=== PATIENT | male | born 1950 | race Hispanic/Latino ===

== ENCOUNTER 2022-08-31 15:28 | Emergency (ER) | payer MEDICARE, MEDICAID, SELFPAY ==
[2022-08-31 15:38] VITALS: BP 159/72; PULSE 90; RESP 16; TEMP 36.7; O2SAT 98
--- NOTE | 2022-08-31 15:55 | ED.SKABFB ---
HPI - Skin/Abscess/Foreign Bdy General Chief complaint: Skin/Abscess/Foreign Body Stated complaint: rash/itchy Time Seen by Provider: 08/31/22 15:55 Source: patient Mode of arrival: ambulatory Limitations: no limitations History of Present Illness HPI narrative: 72-year-old male presents with complaint itchy rash for several months. Had appoint with his primary care physician today, was 10 minutes late and they refused to see him. Rescheduled him for over 1 month from today. Patient symptoms uses [id number]-oasalst hydrocortisone cream to treat the itching. He states he has also applied rubbing alcohol with no relief. He complains the itching is worse to back, left abdomen, left ankle. All systems reviewed and negative except as noted above. Related Data Allergies Allergy/AdvReac Type Severity Reaction Status Date / Time No Known Allergies Allergy Verified 08/31/22 15:41 Review of Systems Review of Systems: CONSTITUTIONAL: Denies fever, chills, or sweats. EYES: Denies visual changes, redness, or discharge. ENT: Denies rhinorrhea, congestion, sore throat, or otalgia. CARDIOVASCULAR: Denies chest pain, palpitations, or edema. RESPIRATORY: Denies cough or dyspnea. GASTROINTESTINAL: Denies abdominal pain, nausea, vomiting, or diarrhea. GENITOURINARY: Denies dysuria or hematuria. SKIN: Reports rash and itching. MUSCULOSKELETAL: Denies back pain, joint pain, or myalgia. NEUROLOGIC: Denies headache, numbness, or weakness. PSYCHIATRIC: Denies anxiety or depression. All other systems reviewed are negative, except as documented in HPI. PMFSH Comments At time of signature, agree with nursing past medical, surgical, social and family history. There is no relevant family history pertinent to the presenting complaint. Exam Narrative: GENERAL: This is a well-nourished, well-developed patient, in no apparent distress. HEAD: normocephalic, atraumatic. EYES: PERRL. Sclera clear/white. Vision is grossly intact. EARS: External ears normal NOSE: External nose normal NECK: Neck supple, non-tender without lymphadenopathy, masses or thyromegaly. CARDIOVASCULAR: Regular rate and rhythm without murmurs, gallops, or rubs. RESPIRATORY: Clear to auscultation. Breath sounds equal bilaterally. No wheezes, rales, or rhonchi. SKIN: erythematous, dry patches of skin to upper back, left abdomen and left ankle. NEURO: awake, alert, and oriented to person, place and time. There were no obvious focal neurologic abnormalities. EXTREMITIES: No joint tenderness, effusion, or edema noted. Course Course Level of Care: Express Care Visit Vital Signs Vital signs: Vital Signs Temperature 36.7 C 08/31/22 15:38 Pulse Rate 90 08/31/22 15:38 Respiratory Rate 16 08/31/22 15:38 Blood Pressure 159/72 H 08/31/22 15:38 Pulse Oximetry 98 08/31/22 15:38 Oxygen Delivery Room Air 08/31/22 15:38 Temperature 36.7 C 08/31/22 15:38 Pulse Rate 90 08/31/22 15:38 Respiratory Rate 16 08/31/22 15:38 Blood Pressure 159/72 H 08/31/22 15:38 Pulse Oximetry 98 08/31/22 15:38 Oxygen Delivery Room Air 08/31/22 15:38 Reviewed MDM - Skin/Abscess/Foreign Bdy MDM Narrative Medical decision making narrative: Patient is aware of diagnosis, understands and agrees to treatment plan. Anticipatory guidance given. Patient agrees to follow-up as directed and is aware of reasons to seek care at the emergency department. Portions of this record may have been created with voice recognition software Differential Diagnosis Differential diagnosis: Likely urticaria, eczema and contact dermatitis Discharge Plan Discharge Clinical Impression: Eczema Patient Disposition: Home, Self-Care Condition: Stable Instructions: Eczema (ED) Additional Instructions: Apply a lotion for eczema twice a day. Take medications as prescribed. Follow up at scheduled appointment with your primary care physician. Prescriptions: New
== END 2022-08-31 16:19 | disposition home or self-care (01) ==
PROVIDERS: Emergency Provider Nurse Practitioner Family
DX: L30.9 Dermatitis, unspecified (principal)
CPT/HCPCS: 99203; G0463